=== PATIENT | male | born 1970 | race Caucasian/White ===

== ENCOUNTER 2023-08-03 12:40 | Emergency (ER) | payer OTHER ==
[~2023-08-03] VITALS: Ht 177.8 cm; Wt 100.0 kg
[2023-08-03] MEDS ORDERED: SALONPAS1 EACH TP (14:43)
[2023-08-03] MEDS ORDERED: CYCLOBENZAPRINE10 M1 PO (14:43)
[2023-08-03] MEDS ORDERED: NAPROSYN500 M1 PO (14:43)
[2023-08-03 14:53] LABS: URINE APPEARANCE CLEAR; URINE BILIRUBIN NEGATIVE (NEGATIVE); URINE BLOOD NEGATIVE (NEGATIVE); URINE COLOR YELLOW; URINE GLUCOSE NEGATIVE (NEGATIVE); URINE KETONE NEGATIVE (NEGATIVE); URINE LEUKOCYTE ESTERASE NEGATIVE (NEGATIVE); URINE NITRATE NEGATIVE (NEGATIVE); URINE PROTEIN(semi-quant) NEGATIVE (NEGATIVE); URINE UROBILINOGEN NORMAL (NORMAL)
[2023-08-03 14:55] LABS: URINE WBC 0-1 /hpf (0-3)
[2023-08-03 15:02] VITALS: BP 152/89
== END 2023-08-03 15:04 | disposition home or self-care (01) ==
LOC: ED 12:40
PROVIDERS: Nurse Practitioner Family
DX: M62.830 Muscle spasm of back (principal); Z28.310 Unvaccinated for COVID-19
CPT/HCPCS: J2360

== ENCOUNTER 2025-01-26 10:21 | Emergency (ER) | payer OTHER ==
[~2025-01-26] VITALS: Ht 177.8 cm; Wt 73.6 kg
[~2025-01-26 10:21] MED LIST: CYCLOBENZAPRINE10 M1 PO; NAPROSYN500 M1 PO; SALONPAS1 EACH TP
[2025-01-26] MEDS ORDERED: PANTOPRAZOLE SO40 MG PO (10:26)
[2025-01-26] MEDS ORDERED: NORCO 325 MG-51 TA1 PO (10:27)
[2025-01-26] MEDS ORDERED: ONDANSETRON HYDR4 MG PO (10:27)
[2025-01-26] MEDS ORDERED: LEADER ASPIRIN325 MG PO (10:28)
[2025-01-26] MEDS ORDERED: QUALITY CHOICE80 MG PO (10:28)
[2025-01-26] MEDS ORDERED: Cyclobenzaprine 10 MG TAB PO ONE (11:00)
[2025-01-26] MEDS ORDERED: CYCLOBENZAPRINE10 M1 PO (11:03)
[2025-01-26 11:08] VITALS: BP 151/93
== END 2025-01-26 11:08 | disposition home or self-care (01) ==
LOC: ED 10:21
DX: M62.838 Other muscle spasm (principal); Z85.01 Personal history of malignant neoplasm of esophagus; Z85.51 Personal history of malignant neoplasm of bladder